=== PATIENT | male | born 1965 | race African-American/Black ===

== ENCOUNTER 2023-08-25 15:21 | Inpatient (IN) | payer SELFPAY ==
[2023-08-25 16:11] LABS: BASO % 0.4 % (0-2.0); EOS % 0.2 % (0-4.5); HEMATOCRIT 39.9 % (35.4-49); HEMOGLOBIN 13.5 GM/dL (11.7-16.9); LYMPH % 10.9 % (8-40); MCH 30.1 pg (25.7-33.7); MCHC 33.8 g/dl (32.0-35.9); MEAN PLT VOLUME 8.4 fl (7.5-11.1); MONO % 7.4 % (3.8-10.2); NEUT % 81.1 % (42.8-82.8); PLATELET COUNT 300 10^3/uL (134-434); RBC 4.48 M/mm3 (4.00-5.60); RDW 14.2 % (11.9-15.9); WHITE BLOOD COUNT 14.5 K/mm3 (4.0-10.0)
[2023-08-25 16:35] LABS: BLOOD UREA NITROGEN 15.9 mg/dL (7-18); CALCIUM 9.2 mg/dL (8.5-10.1)
[2023-08-25 16:38] LABS: CREATININE 1.2 mg/dL (0.55-1.3)
[2023-08-25 16:39] LABS: BILIRUBIN,TOTAL 0.8 mg/dL (0.2-1); TOT PROT 7.8 g/dl (6.4-8.2)
[2023-08-25] MEDS ORDERED: VANCOMYCIN 1,000 MG in DEXTROSE 5%-WATER - 250 ML IVPB ONE (17:51)
[2023-08-25] MEDS ORDERED: PIPERACILLIN/TAZOB 4.5 GM 4.5 GM in DEXTROSE 5%-WATER 100 ML IVPB ONE ×2 (17:51→20:45)
[2023-08-25] MEDS ORDERED: morphine CARPU-JECT 4 MG/1 ML DISP.SYRIN IVPUSH ONE (17:54)
[2023-08-25] MEDS ORDERED: morphine SULFATE 4 MG/ML VIAL ONE (18:16)
[2023-08-25] MEDS ORDERED: VANCOMYCIN/WATER FOR INJ (PEG) 1,000 MG/200 ML BAG IVPB ONE (20:45)
[2023-08-25 22:57] VITALS: BMI 36.2
[2023-08-26] MEDS ORDERED: ACETAMINOPHEN 325 MG TABLET (FP) PO PRN (00:21)
[2023-08-26] MEDS ORDERED: morphine SULFATE 4 MG/ML VIAL IVPUSH PRN ×3 (00:21→14:11)
[2023-08-26] MEDS ORDERED: SODIUM CHLORIDE 1,000 ML IV SCH ×2 (00:30→14:11)
[2023-08-26] MEDS ORDERED: PIPERACILLIN/TAZOB 3.375 GM 3.375 GM in DEXTROSE 5%-WATER - 50 ML IVPB SCH (03:00)
[2023-08-26] MEDS: PIPERACILLIN/TAZOB 3.375 GM 3.375 GM in DEXTROSE 5%-WATER - 50 ML IVPB SCH ×2 (03:49→10:06)
[2023-08-26 10:22] LABS: BASO % 0.3 % (0-2.0); EOS % 0.3 % (0-4.5); HEMATOCRIT 35.3 % (35.4-49); LYMPH % 7.8 % (8-40); MCHC 33.9 g/dl (32.0-35.9); MEAN CELL VOLUME 88.6 fl (80-96); MONO % 8.5 % (3.8-10.2); NEUT % 83.1 % (42.8-82.8); PLATELET COUNT 274 10^3/uL (134-434); RBC 3.98 M/mm3 (4.00-5.60); RDW 14.2 % (11.9-15.9); WHITE BLOOD COUNT 11.8 K/mm3 (4.0-10.0)
[2023-08-26 10:24] LABS: INR 1.46 (0.83-1.09); PROTHROMBIN TIME (PATIENT) 16.9 SEC (9.7-13.0)
[2023-08-26 10:27] LABS: ACTIVATED PTT 31.6 SECONDS (25.2-36.5)
[2023-08-26] MEDS ORDERED: VANCOMYCIN 1,000 MG VIAL (RESTRICTED TO ID ONLY) ONE (10:40)
[2023-08-26] MEDS ORDERED: GENTAMICIN SO4 80 MG/2 ML VIAL ONE (10:40)
[2023-08-26 11:01] LABS: POTASSIUM 3.6 mmol/L (3.5-5.1)
[2023-08-26 11:15] LABS: BLOOD UREA NITROGEN 13.1 mg/dL (7-18); CALCIUM 8.5 mg/dL (8.5-10.1); MAGNESIUM 2.4 mg/dL (1.8-2.4)
[2023-08-26 11:16] LABS: ALBUMIN 2.6 g/dl (3.4-5.0)
[2023-08-26 11:17] LABS: PHOSPHOROUS 3.8 mg/dL (2.5-4.9)
[2023-08-26 11:19] LABS: BILIRUBIN,TOTAL 1.6 mg/dL (0.2-1); CREATININE 0.9 mg/dL (0.55-1.3); TOT PROT 6.8 g/dl (6.4-8.2)
[2023-08-26] MEDS ORDERED: FENTANYL CITRATE/PF 50 MCG/ML VIAL ONE ×4 (12:34→14:29)
[2023-08-26] MEDS ORDERED: PROPOFOL 20 ML ONE (12:34)
[2023-08-26] MEDS ORDERED: LIDOCAINE HCL/PF 2% SDV 5ML VIAL ONE (12:34)
[2023-08-26] MEDS ORDERED: MIDAZOLAM HCL 2 MG/2 ML SINGLE DOSE VIAL ONE (12:35)
[2023-08-26] MEDS ORDERED: DEXAMETHASONE SOD PHOSPHATE 4 MG/1 ML VIAL ONE (13:02)
[2023-08-26] MEDS ORDERED: HYDROGEN PEROXIDE 473 ML PO ONE ×2 (13:26)
[2023-08-26] MEDS ORDERED: KETOROLAC TROMETHAMINE 30 MG/1 ML VIAL ONE (13:33)
[2023-08-26] MEDS ORDERED: ONDANSETRON 4 MG/2 ML VIAL ONE (13:33)
[2023-08-26] MEDS ORDERED: PROMETHAZINE HCL 25 MG/1 ML VIAL IVPB PRN (13:47)
[2023-08-26] MEDS ORDERED: ACETAMINOPHEN 1000 MG/100 ML BAG IVPB ONE (13:47)
[2023-08-26] MEDS ORDERED: ONDANSETRON 4 MG/2 ML VIAL IVPUSH PRN ×2 (13:47→14:11)
[2023-08-26] MEDS ORDERED: LACTATED RINGERS SOLUTION 1,000 ML IV SCH (14:00)
[2023-08-26] MEDS ORDERED: oxyCODONE HCL 5 MG TABLET PO PRN ×2 (14:11)
[2023-08-26] MEDS ORDERED: ACETAMINOPHEN 500 MG TABLET (FP) PO PRN (20:00)
[2023-08-26] MEDS: PIPERACILLIN/TAZOB 2.25 GM 2.25 GM in DEXTROSE 5%-WATER - 50 ML IVPB SCH (21:21)
[2023-08-26] MEDS: VANCOMYCIN/WATER FOR INJ (PEG) 1,000 MG/200 ML BAG IVPB SCH (22:21)
[2023-08-26] MEDS: DOCUSATE SODIUM 100 MG CAPSULE (FP) PO SCH (22:22)
[2023-08-26] MEDS: POLYETHYLENE GLYCOL (HEALTHYLAX) 3350 17 GM PACKET PO SCH (22:23)
[2023-08-27] MEDS: PIPERACILLIN/TAZOB 2.25 GM 2.25 GM in DEXTROSE 5%-WATER - 50 ML IVPB SCH ×2 (02:43→10:34)
[2023-08-27] MEDS ORDERED: PIPERACILLIN/TAZOB 3.375 GM 3.375 GM in DEXTROSE 5%-WATER - 50 ML IVPB SCH (03:00)
[2023-08-27 08:40] LABS: BASO % 0.5 % (0-2.0); EOS % 0.1 % (0-4.5); HEMATOCRIT 33.4 % (35.4-49); HEMOGLOBIN 11.6 GM/dL (11.7-16.9); LYMPH % 11.6 % (8-40); MCH 30.8 pg (25.7-33.7); MCHC 34.8 g/dl (32.0-35.9); MEAN CELL VOLUME 88.5 fl (80-96); MONO % 8.6 % (3.8-10.2); NEUT % 79.2 % (42.8-82.8); PLATELET COUNT 273 10^3/uL (134-434); RBC 3.77 M/mm3 (4.00-5.60); WHITE BLOOD COUNT 9.7 K/mm3 (4.0-10.0)
[2023-08-27 09:12] LABS: ALBUMIN 2.3 g/dl (3.4-5.0)
[2023-08-27 09:13] LABS: BLOOD UREA NITROGEN 17.5 mg/dL (7-18)
[2023-08-27 09:14] LABS: BILIRUBIN,TOTAL 0.4 mg/dL (0.2-1); CREATININE 0.8 mg/dL (0.55-1.3); TOT PROT 6.4 g/dl (6.4-8.2)
[2023-08-27 09:17] LABS: CALCIUM 8.5 mg/dL (8.5-10.1); MAGNESIUM 2.5 mg/dL (1.8-2.4)
[2023-08-27] MEDS: DOCUSATE SODIUM 100 MG CAPSULE (FP) PO SCH ×2 (10:34→21:59)
[2023-08-27] MEDS: POLYETHYLENE GLYCOL (HEALTHYLAX) 3350 17 GM PACKET PO SCH ×2 (10:35→21:59)
[2023-08-27] MEDS: VANCOMYCIN/WATER FOR INJ (PEG) 1,000 MG/200 ML BAG IVPB SCH (11:27)
[2023-08-27] MEDS: PIPERACILLIN/TAZOB 3.375 GM 3.375 GM in DEXTROSE 5%-WATER - 50 ML IVPB SCH (18:16)
[2023-08-27] MEDS: VANCOMYCIN PREMIX 1.5 GM 1,500 MG/300 ML BAG IVPB SCH (21:59)
[2023-08-28] MEDS: PIPERACILLIN/TAZOB 3.375 GM 3.375 GM in DEXTROSE 5%-WATER - 50 ML IVPB SCH ×2 (01:58→09:24)
[2023-08-28 05:56] VITALS: TEMP 98.3
[2023-08-28] MEDS: DOCUSATE SODIUM 100 MG CAPSULE (FP) PO SCH (09:24)
[2023-08-28] MEDS: POLYETHYLENE GLYCOL (HEALTHYLAX) 3350 17 GM PACKET PO SCH (09:24)
[2023-08-28 10:22] LABS: BASO % 1.2 % (0-2.0); EOS % 2.1 % (0-4.5); HEMOGLOBIN 12.6 GM/dL (11.7-16.9); LYMPH % 31.6 % (8-40); MCH 29.6 pg (25.7-33.7); MCHC 32.3 g/dl (32.0-35.9); MEAN CELL VOLUME 91.7 fl (80-96); MEAN PLT VOLUME 9.3 fl (7.5-11.1); MONO % 10.1 % (3.8-10.2); PLATELET COUNT 337 10^3/uL (134-434); RBC 4.25 M/mm3 (4.00-5.60); WHITE BLOOD COUNT 5.3 K/mm3 (4.0-10.0)
[2023-08-28] MEDS: VANCOMYCIN PREMIX 1.5 GM 1,500 MG/300 ML BAG IVPB SCH (10:29)
[2023-08-28 10:45] LABS: POTASSIUM 4.4 mmol/L (3.5-5.1)
[2023-08-28 10:55] LABS: ALBUMIN 2.7 g/dl (3.4-5.0); CALCIUM 8.7 mg/dL (8.5-10.1); MAGNESIUM 2.5 mg/dL (1.8-2.4)
[2023-08-28 10:58] LABS: BILIRUBIN,TOTAL 0.4 mg/dL (0.2-1); CREATININE 0.7 mg/dL (0.55-1.3)
[2023-08-28 11:00] LABS: TOT PROT 7.4 g/dl (6.4-8.2)
[2023-08-28] MEDS ORDERED: FLU VACC QS2022-23(6MOS UP)/PF 60 MCG/0.5 ML SYRINGE IM ONE (15:26)
[2023-08-28 15:28] VITALS: BP 111/68; PULSE 69; RESP 16
[2023-08-28] MEDS ORDERED: FLU VACCINE (FLULAVAL) PF 60 MCG/0.5 ML SYRINGE 2023-2024 IM ONE (15:45)
== END 2023-08-28 17:34 | disposition home or self-care (01) | DRG 383 ==
LOC: JERFT 15:21 → JER 15:21 → JERBED 18:15 → J8W 19:26
PROVIDERS: ADMIT Internal Medicine; ATTEND Nurse Practitioner Acute Care
PROC: 0Y900ZZ Drainage of Right Buttock, Open Approach (ICD-10-PCS; principal; 2023-08-26 13:00)
DX: L02.31 Cutaneous abscess of buttock (principal); L03.317 Cellulitis of buttock; D72.829 Elevated white blood cell count, unspecified; E66.9 Obesity, unspecified; Z68.36 Body mass index [BMI] 36.0-36.9, adult
CPT/HCPCS: 36415; 72193-TC; 80053; 83735; 84100; 85025; 85610; 85651; 85730; 86140; 86850; 86900; 86901; 87040; 87070; 87077; 87081; 87205; 90686; 94760; 99285-25; G0008

== ENCOUNTER 2024-02-18 21:28 | Emergency (ER) | payer OTHER ==
[2024-02-18 21:33] VITALS: BP 118/80; PULSE 89; RESP 18; TEMP 98.4; BMI 36.2
[2024-02-18] MEDS ORDERED: LIDOCAINE 4% PATCH TP ONE (21:50)
[2024-02-18] MEDS ORDERED: ACETAMINOPHEN 325 MG TABLET (FP) ONE (21:50)
[2024-02-18] MEDS: LIDOCAINE 5% TOPICAL PATCH TP ONE (21:55)
[2024-02-18] MEDS: ACETAMINOPHEN 325 MG TABLET (FP) PO ONE (21:55)
[2024-02-18] MEDS ORDERED: LIDOCAINE PATCH REMOVAL MC ONE (22:00)
== END 2024-02-18 23:37 | disposition home or self-care (01) ==
LOC: JERFT 21:28
DX: M25.561 Pain in right knee (principal)
CPT/HCPCS: 73562-TC-RT-FY; 99283-25

== ENCOUNTER 2024-03-31 12:02 | Emergency (ER) | payer OTHER ==
[2024-03-31 12:07] VITALS: BP 120/80; PULSE 84; RESP 18; TEMP 98.5; BMI 36.2
[2024-03-31] MEDS ORDERED: IBUPROFEN 600 MG TABLET (FP) PO ONE (13:04)
[2024-03-31] MEDS: IBUPROFEN 600 MG TABLET (FP) PO ONE (13:05)
== END 2024-03-31 13:15 | disposition home or self-care (01) ==
LOC: JERFT 12:02
DX: H60.92 Unspecified otitis externa, left ear (principal); H66.92 Otitis media, unspecified, left ear; H92.02 Otalgia, left ear
CPT/HCPCS: 99283-25